=== PATIENT | male | born 1975 | race Caucasian/White ===

== ENCOUNTER 2016-09-10 19:31 | Observation (INO) | payer OTHER ==
[~2016-09-10] VITALS: Ht 180.3 cm; Wt 90.7 kg
--- NOTE | 2016-09-10 20:51 | ED ORDER SUMMARY ---
..... Patient: JUAN C BOYKIN OrderSheet [facility] VisitID: [id number] [place] [address] 41y, M Registration Date/Time: 09/10/2016 ORDER SHEET Weight: 90.7 kg (stated) Allergies: Penicillin GENERAL ORDERS: CT Head wo Cont Urgent (20:03 09/10/2016 HBivens A.R.N.P.) (Ack 20:06 AMcQuoid ER Tech1) (20:15 AMcQuoid ER Tech1) Senior Manufacturing Supervisor (Continuous) (20:03 09/10/2016 HBivens A.R.N.P.) (20:04 HSoule) CBC w Diff Urgent (20:03 09/10/2016 HBivens A.R.N.P.) (Ack 20:06 AMcQuoid ER Tech1) (20:13 AMcQuoid ER Tech1) CMP Urgent (20:03 09/10/2016 HBivens A.R.N.P.) (Ack 20:06 AMcQuoid ER Tech1) (20:13 AMcQuoid ER Tech1) CPK Urgent (20:03 09/10/2016 HBivens A.R.N.P.) (Ack 20:06 AMcQuoid ER Tech1) (20:13 AMcQuoid ER Tech1) Troponin-I Urgent (20:03 09/10/2016 HBivens A.R.N.P.) (Ack 20:06 AMcQuoid ER Tech1) (20:13 AMcQuoid ER Tech1) EKG - ER Stat (20:03 09/10/2016 HBivens A.R.N.P.) (20:04 HSoule) Vitals - Orthostatic (20:03 09/10/2016 HBivens A.R.N.P.) (20:04 HSoule) CPK Urgent (20:40 09/10/2016 HBivens A.R.N.P.) (Ack 20:41 AMcQuoid ER Tech1) (21:34 AMcQuoid ER Tech1) Troponin-I Urgent (20:40 09/10/2016 HBivens A.R.N.P.) (Ack 20:41 AMcQuoid ER Tech1) (21:34 AMcQuoid ER Tech1) EKG - ER Stat (20:49 09/10/2016 HBivens A.R.N.P.) (21:21 HSoule) MEDICATION ORDERS: IV FLUIDS: IV NS : initial bolus 1000 mL (1000 mL/hr), then none - (NOW) (20:03 09/10/2016 HBivens A.R.N.P.) (Ack 20:04 HSoule) (20:08 HSoule) IV Saline Lock (20:03 09/10/2016 HBivens A.R.N.P.) (Ack 20:04 HSoule) (20:08 HSoule) KCl IV 20 meq/100mL (Run no faster than 10 units/hr, HIGH ALERT MEDICATION, NOW, Run no faster than 10 mEq/hr) (20:40 09/10/2016 HBivens A.R.N.P.) (Ack 20:41 HSoule) (21:17 HSoule) ORDER SHEET NOTES: [Electronically signed by Ina Dunbar A.R.N.P. (22:31 09/10/2016)] [Electronically signed by Aundrea Ko (02:08 09/11/2016)] [Electronically locked/signed by Audnrea Ko (02:08 09/11/2016)]
--- NOTE | 2016-09-10 20:51 | ED NURSING NOTES ---
Clinical Report - Nurses [facility] [address] [place] [address] 09/10/2016 19:32 Patient: JUAN C BOYKIN TRIAGE Triage time 19:35 Sep 10 2016. Acuity: LEVEL 3. Chief Complaint: (Weakness/Sycopal episode). SEPSIS SCREEN: Sepsis Screen: negative. Negative (no infection suspected/documented). GILA COMA SCORE: [place] Coma Scale: 15- eyes open spontaneously (4); best verbal response- oriented x 4 (5); best motor response- obeys commands (6). --19:45 Aundrea Ko 19:35 09/10/16. BP: 119/70. HR: 73. RR: 20. O2 saturation: 100%. Temp: 97.5 F (oral). Pain level now: 0/10. --19:45 Aundrea Ko. Weight: 90.7 kg stated. Height/Length: 70 inches Per Patient. BMI: 28.7. --19:38 Aundrea Ko. Medications ALPRAZolam Oral. --19:36 Aundrea Ko AmLODIPine Besylate Oral. --19:37 Aundrea Ko Hydrochlorothiazide Oral. --21:27 Aundrea Ko. Allergies Penicillin. --19:37 Aundrea Ko. Medication/allergy information source: the patient. --19:45 Aundrea Ko. History Arrived by private vehicle. Historian: patient. Unaccompanied. Primary physician (Ayleen). This started just prior to arrival. ( Patient had just got off work and got home when he felt dizzy and lowered himself to the floor. He then got back up to get water and felt like he would pass out again, according to his room mate who was there, he hit the floor and hit the side of his head. He remained laying down and his roommate called EMS. EMS reports he was alert and oriented when they arrived.). Treatment INSOLE PRESSER: See EMS report. Pre-hospital 12-lead EKG. BP: 120 / 70. HR: 70. ( 2x syncopal episode, no post-ictal type behavior. Glucose 178). PAST MEDICAL HX: Immunizations: up-to-date. SOCIAL HX: Smoker- current status unknown (Chews- 3-5 dips per day). History of drug use: marijuana. No alcohol use. No infectious disease exposure. ABUSE ASSESSMENT: No report of abuse. SELF HARM ASSESSMENT: A self harm assessment was performed. The patient answered "no" to the question "Have you recently felt down, depressed, or hopeless?", "Have you noticed less interest or pleasure in doing things?", "Do you have thoughts of harming or killing yourself?", "Are you here because you tried to hurt yourself?", "Have you ever tried to hurt yourself before today?", "Have you recently had thoughts about harming or killing others?" and "Do you have any dangerous items in your possession?". NUTRITIONAL RISK ASSESSMENT: The nutritional risk assessment revealed no deficiencies. FUNCTIONAL ASSESSMENT: Functional assessment: no impairments noted. LEARNING NEEDS ASSESSMENT: The learning needs assessment revealed no barriers. FALL RISK ASSESSMENT: Fall risk assessment completed. Risk factors identified include postural hypotension, dizziness and patient history of fainting. Fall interventions initiated. Patient placed on stretcher. Side rails up x2. Brakes on Bed in low position. Call light in reach of patient. Instructed not to get up without assistance. SKIN INTEGRITY ASSESSMENT: Skin integrity risk assessment completed. No skin integrity risk identified. --19:45 Aundrea Ko PAST MEDICAL HX: ( Family history of heart attack before age 50). --19:47 Aundrea Ko. PROBLEMS: Hypertension. --19:38 Aundrea Ko. ADDITIONAL SURGERIES: Hernia Repair. Wrist fracture repair . --19:38 Aundrea Ko. Interventions ID band on patient. To treatment room. --19:45 Aundrea Ko. 19:36 09/10/2016 Site #1 started via IV in the left antecubital space with an 18g angiocath, with aseptic technique; one attempt. Saline lock flushed with 10 mL saline. --19:36 Aundrea Ko. PHYSICAL ASSESSMENT 19:45 09/10/16. To room via stretcher. Patient gowned. GENERAL / NEURO / PSYCH: Alert. Oriented X 4. Appears in no acute distress. HEENT: No facial asymmetry noted. Mucous membranes are pink. RESPIRATORY: Respirations not labored. CVS: Normal sinus rhythm noted. Pulses within normal limits. GI / : Abdomen soft and nontender. SKIN: Skin is warm and dry. --19:45 Aundrea Ko. NURSING PROGRESS NOTES ( at bedside, reassurance given, plan of care discussed with patient and family.). --19:49 Aundrea Ko EKG time: (19:41 Sep 10 2016). EKG was performed by a nurse and shown to the ED physician. --19:51 Aundrea Ko 19:43 09/10/2016 Started bag #1 1000 mL IV Fluids IV NS (Saline); at 1000 mL/hr over 1 hour(s) via site #1. Allergies verified and confirmed 5 rights. IV patency established. IV site checked: no pain, redness, or swelling. IV flushed thoroughly pre- and post-medication administration (Started en route by EMS). --20:08 Aundrea Ko 19:46 09/10/16. satellite project site monitor, pulse oximeter and NIBP monitor placed on patient; monitor alarms on. Patient gowned. Reassurance given to the patient and patient's family. Two patient identifiers checked. Call light placed in reach. Side rails up x 1. Bed placed in lowest position. Brakes of bed on. Patient ready for evaluation- chart flagged and ED physician notified. --19:46 Aundrea Ko 20:08. Patient transported to CT by stretcher with tech. --20:08 McQuoid, Gladis, ER Tech1 20:15. Patient returned from CT by stretcher with tech. --20:16 McQuoid, Gladis, ER Tech1 20:30 09/10/16. BP: 120/71. HR: 73. RR: 20. O2 saturation: 99% on room air. --20:31 Aundrea Ko Critical value relayed to ED by jorge alberto. Critical value received by aundrea. K: 2.2. Critical value read back. ED physician notifed of critical value. --20:33 Aundrea Ko 21:02 09/10/2016 Started 20 meq of KCL (Potassium Chloride) IVPB in bag #1 100 mL; at 50 mL/hr over 1 hour(s) via site #1 via IV pump. Allergies verified and confirmed 5 rights. IV patency established. IV site checked: no pain, redness, or swelling. IV flushed thoroughly pre- and post-medication administration. --21:17 Aundrea Ko 21:02 09/10/2016 IV Fluids IV NS Discontinued: bag #1 completed. Total amount infused: 1000 mL. IV patency established. IV site checked: no pain, redness, or swelling. IV flushed thoroughly. --21:17 Aundrea Ko 21:23. EKG was performed by a tech. --21:25 Gladis Hernandez ER Tech1 ( Patient reports he is on a diuretic for his hypertension that was adjusted to twice a day. Provider notified. Medication added to chart.). --21:28 Aundrea Ko 21:39 09/10/16. BP: 135/82. HR: 73. O2 saturation: 97% on room air. --21:40 Aundrea Ko 22:14 09/10/2016 Site #[address] upon admission; patent, no pain and no signs of infection or infiltration; flushes easily. --22:14 Aundrea Ko 22:14 09/10/2016 KCL IVPB Continued: upon admission at the rate of 100 mL/hr. 50 mL remaining bag #1. IV patency established. IV site checked: no pain, redness, or swelling. IV flushed thoroughly. --22:14 Aundrea Ko. DISPOSITION / DISCHARGE Report was given to a nurse via a phone call. All questions were answered. Report was acknowledged and care was transferred. (lev). Bed obtained and ready. --22:10 Aundrea Ko Patient's personal items include: shirt, pants, wallet and cell phone; items were given to the patient and transported with the patient. --22:14 Aundrea Ko Disposition: observation in Acute Care. Transported via stretcher by tech with IV. --22:15 Audnrea Ko 22:15 09/10/16. --02:07 Aundrea Ko 22:10 09/10/16. BP: 132/80. HR: 70. RR: 20. O2 saturation: 100% on room air. Temp: 98.9 F (oral). Pain level now: 0/10. --02:07 Aundrea Ko. Locked/Released at 09/11/2016 2:08 by Aundrea Ko,
--- NOTE | 2016-09-10 20:51 | ED CLINICAL REPORT ---
Clinical Report - Physicians/Mid Levels [facility] [address] [place] [address] 09/10/2016 19:32 Patient: JUAN C BOYKIN Time Seen: 19:56; initial patient contact, initial documentation, patient care assumed. Arrived- By ambulance. Historian- patient. HISTORY OF PRESENT ILLNESS The patient has recovered. Chief Complaint: SINGLE SYNCOPAL EPISODE. This occurred just prior to arrival. Event was witnessed. (roommate). At time of event, he was standing and had just stood up. This did not occur when the patient was recumbent. The patient had preceding symptoms of light-headedness. No preceding symptoms of nausea, dim vision, chest pain, warmth or abdominal pain. The patient lost consciousness and collapsed. No seizure activity, incontinence or apnea noted. Did not lose pulse. Had a single episode. The episode was brief. The patient currently has weakness. No nausea currently. No headache currently. (came home from work, was walking around house, and felt weak and lightheaded, sat down on floor, got better, went to get up and passed out). Similar symptoms previously: None. Recent medical care: Not recently seen/assessed. REVIEW OF SYSTEMS No headache, chest pain, palpitations, abdominal pain or vomiting. No diarrhea, numbness, fever or difficulty breathing. He has had dizziness. He has had new onset of generalized weakness. All systems otherwise negative, except as recorded above. PAST HISTORY See nurses notes. ( PROBLEMS: Hypertension. --19:38 Aundrea Ko. ADDITIONAL SURGERIES: Hernia Repair. Wrist fracture repair . --19:38 Aundrea Ko.). SOCIAL HISTORY Smoker- current status unknown (chews). Occasional alcohol use. History of occasional drug use: marijuana. No recent travel. Is a local resident. FAMILY HISTORY Negative. ADDITIONAL NOTES The nursing notes have been reviewed with agreement regarding the chief complaint, HPI, ROS, PMH and patient medications and allergies. PHYSICAL EXAM Vital Signs: 09/10/2016 19:35 BP: 119/70. HR: 73. RR: 20. O2 saturation: 100%. Temp: 97.5 F. Pain level now: 0/10. Have been reviewed as normal and appear to be correct. Appearance: Alert. No acute distress. Eyes: Pupils equal, round and reactive to light. No nystagmus. Extraocular movements normal. ENT: Normal ENT inspection. TM's normal. Moist mucous membranes. Pharynx normal. Neck: Normal inspection. Neck supple. CVS: Normal heart rate and rhythm. Heart sounds normal. Pulses normal. Respiratory: No respiratory distress. Breath sounds normal. Abdomen: Soft and nontender. No organomegaly. Back: Normal inspection. Skin: Skin warm and dry. Normal skin color. No rash. Normal skin turgor. Extremities: Extremities exhibit normal ROM. No lower extremity edema. Neuro: Alert. Oriented X 3. Mood/affect normal. Speech normal. Cranial nerves normal (as tested). No cerebellar findings. No motor deficit. No sensory deficit. LABS, X-RAYS, AND EKG EKG: EKG time: (1940). No acute process. No acute ischemia. Normal EKG. Rate: 74. Normal EKG. interpreted by dr coppola and reviewed by me. The EKG appears to be a good tracing. EKG #2: Normal. EKG time: (2122). No acute process. No acute ischemia. Normal EKG. Rate: 70. The study has been interpreted contemporaneously by me (and dr avery). The EKG appears to be a good tracing. Interpretation time: 2124. CT Head: Normal study. No acute disease. (IMPRESSION: 1. Negative head CT. 2. Findings discussed with BLAZE Torres at [address] scans at this facility use dose modulation, iterative reconstruction, and/or weight-based dosing when appropriate to reduce radiation dose to as low as reasonably achievable. Electronically Final signed by:Kaiden Mckenzie MD 09/10/2016 8:52:40 PM). The study was interpreted by the radiologist and discussed with the radiologist. Interpretation time: 2054. Laboratory Tests: CBC w Diff: (NANCY: 09/10/2016 19:45) ( MsgRcvd 09/10/2016 20:12) Final results Test Result Flag Units (Reference) WHITE BLOOD COUNT 6.7 K/uL (4.5-11.5) RED BLOOD COUNT 4.76 M/uL (4.50-5.90) HEMOGLOBIN 14.7 gm/dL (13.5-17.5) HEMATOCRIT 42.6 % (41.0-53.0) MEAN CELL VOLUME 90 fL (80-100) MEAN CORPUSCULAR HGB 31 pg (26-34) MEAN CORPUSCULAR HGB CONC 34 g/dL (31-37) RED CELL DISTRIBUTION WIDTH 12.6 % (11.6-14.8) PLATELET COUNT 230 K/uL (150-400) NEUTROPHIL % 53.7 % (50-75) LYMPH % 35.8 % (25-40) MONO % 6.4 % (3-14) EOSINOPHIL % 3.6 % (0-4) BASOPHIL % 0.5 % (0-2) CPK: (NANCY: 09/10/2016 21:10) ( [facility] 09/10/2016 21:51) Final results Test Result Flag Units (Reference) CPK 628 H U/L (24-260) CK-MB 4.3 H ng/mL (0.5-3.2) %CKMB 0.7 % (0.0-4.0) TROPONIN I <0.05 ng/mL (0.00-1.5) TROPONIN REFERENCE RANGE:<0.1 NEGATIVE0.1-1.5 INDETERMINANT>1.5 POSITIVE CMP: (NANCY: 09/10/2016 19:45) ( [facility] 09/10/2016 20:36) Final results Test Result Flag Units (Reference) GLUCOSE 174 H mg/dL (70-110) BUN 21 H mg/dL (7-18) CREATININE 1.3 mg/dL (0.6-1.3) Estimated GFR >60 mL/min Estimated GFR- >60 mL/min Note: Persistent reduction over 3 months in eGFR<60 mL/min/1.73 m2 defines CKD. Patients with eGFR values>=60 mL/min/1.73 m2 may also have CKD if evidence ofpersistent proteinuria. Additional information may be foundat www.kidney.org. SODIUM 142 mmol/L (136-145) POTASSIUM 2.2 *L mmol/L (3.5-5.1) CRITICAL RESULTS CALLEDCalled to MADDY REEVES IN ED 09/10/162032Were 2 patient identifiers used? YWas the result read back? YVERIFIED ON ALTERNATE ANALYZER CHLORIDE 102 mmol/L (98-107) CARBON DIOXIDE 28 mmol/L (21-32) CALCIUM 9.0 mg/dL (8.5-10.1) TOTAL PROTEIN 6.8 g/dL (6.4-8.2) ALBUMIN 4.3 g/dL (3.3-5.0) BILIRUBIN, TOTAL 0.6 mg/dL (0.0-1.0) ALKALINE PHOSPHATASE 46 U/L (46-116) AST (SGOT) 32 U/L (15-37) ALT (SGPT) 44 U/L (12-78) CPK 635 H U/L (24-260) TROPONIN I <0.05 L ng/mL (0.00-1.5) TROPONIN REFERENCE RANGE:<0.1 NEGATIVE0.1-1.5 INDETERMINANT>1.5 POSITIVE MAGNESIUM 1.8 mg/dL (1.8-2.4) CK-MB 4.7 H ng/mL (0.5-3.2) %CKMB 0.7 % (0.0-4.0) . PROGRESS AND PROCEDURES Course of Care: 20:44 09/10/16. lab results discussed and pt informed of need for admit 21:29 09/10/16. nurse reporting now that pt told her he was taking hctz twice daily for his htn 0. Dr Lackey at bedside. 09/10/2016 20:30 BP: 120/71. HR: 73. RR: 20. O2 saturation: 99%. Vital Signs: have been reviewed as normal and appear to be correct. Discussed case with on-call health care provider, (call returned 2044 Dr Lackey). Reviewed test results. Agreed upon treatment plan and decision to admit. Health care provider will see patient in hospital. Patient and family counseled in person regarding the patient's stable condition, test results, diagnosis and need for additional testing and admission. Differential Diagnosis: I considered situational stimulus, cough, sneezing, swallowing, cardiac sinus hypersensitivity, sudden postural change, prolonged standing, hypovolemia, vasodilator drugs, adrenal insufficiency, arrhythmia, heart block, myocardial infarction, idiopathic hypertrophic subaortic stenosis, aortic stenosis, left ventricular dysfunction, seizure, hypoxia, hypoglycemia and basivertebral TIA as a possible cause of syncope in this patient. This is a partial list of diagnoses considered. Above considerations are based on history, physical exam, reassessment, laboratory data, EKG and other information. Differential diagnosis was discussed with patient. Disposition: Admitted to Acute Care. 20:51. Condition: good and stable. CLINICAL IMPRESSION Syncope of unknown cause. Hypokalemia. (Electronically signed by Ina Dunbar A.R.N.P. 09/10/2016 22:31)
--- NOTE | 2016-09-10 20:51 | ED ORDER SUMMARY ---
..... Patient: JUAN C BOYKIN OrderSheet [facility] VisitID: [id number] [place] [address] 41y, M Registration Date/Time: 09/10/2016 ORDER SHEET Weight: 90.7 kg (stated) Allergies: Penicillin GENERAL ORDERS: CT Head wo Cont Urgent (20:03 09/10/2016 HBivens A.R.N.P.) (Ack 20:06 AMcQuoid ER Tech1) (20:15 AMcQuoid ER Tech1) Senior Electronics Design Engineer (Continuous) (20:03 09/10/2016 HBivens A.R.N.P.) (20:04 HSoule) CBC w Diff Urgent (20:03 09/10/2016 HBivens A.R.N.P.) (Ack 20:06 AMcQuoid ER Tech1) (20:13 AMcQuoid ER Tech1) CMP Urgent (20:03 09/10/2016 HBivens A.R.N.P.) (Ack 20:06 AMcQuoid ER Tech1) (20:13 AMcQuoid ER Tech1) CPK Urgent (20:03 09/10/2016 HBivens A.R.N.P.) (Ack 20:06 AMcQuoid ER Tech1) (20:13 AMcQuoid ER Tech1) Troponin-I Urgent (20:03 09/10/2016 HBivens A.R.N.P.) (Ack 20:06 AMcQuoid ER Tech1) (20:13 AMcQuoid ER Tech1) EKG - ER Stat (20:03 09/10/2016 HBivens A.R.N.P.) (20:04 HSoule) Vitals - Orthostatic (20:03 09/10/2016 HBivens A.R.N.P.) (20:04 HSoule) CPK Urgent (20:40 09/10/2016 HBivens A.R.N.P.) (Ack 20:41 AMcQuoid ER Tech1) (21:34 AMcQuoid ER Tech1) Troponin-I Urgent (20:40 09/10/2016 HBivens A.R.N.P.) (Ack 20:41 AMcQuoid ER Tech1) (21:34 AMcQuoid ER Tech1) EKG - ER Stat (20:49 09/10/2016 HBivens A.R.N.P.) (21:21 HSoule) MEDICATION ORDERS: IV FLUIDS: IV NS : initial bolus 1000 mL (1000 mL/hr), then none - (NOW) (20:03 09/10/2016 HBivens A.R.N.P.) (Ack 20:04 HSoule) (20:08 HSoule) IV Saline Lock (20:03 09/10/2016 HBivens A.R.N.P.) (Ack 20:04 HSoule) (20:08 HSoule) KCl IV 20 meq/100mL (Run no faster than 10 units/hr, HIGH ALERT MEDICATION, NOW, Run no faster than 10 mEq/hr) (20:40 09/10/2016 HBivens A.R.N.P.) (Ack 20:41 HSoule) (21:17 HSoule) ORDER SHEET NOTES: [Electronically signed by Ina Dunbar A.R.N.P. (22:31 09/10/2016)] [Electronically signed by Aundrea Ko (02:08 09/11/2016)] [Electronically locked/signed by Aundrea Ko (02:08 09/11/2016)]
--- NOTE | 2016-09-10 20:55 | DIAGNOSTIC IMAGING REPORT ---
PROCEDURE: CT HEAD WITHOUT CONTRAST INDICATION: SYNCOPE TECHNIQUE: Noncontrast axial images with sagittal and coronal reformations. COMPARISON: None. FINDINGS: Brain and ventricles are normal. No evidence of an acute process or hemorrhage. Sinuses and mastoids are normal. IMPRESSION: 1. Negative head CT. 2. Findings discussed with BLAZE Torres at [address] scans at this facility use dose modulation, iterative reconstruction, and/or weight-based dosing when appropriate to reduce radiation dose to as low as reasonably achievable.
[2016-09-10 23:13] VITALS: BP 120/69
--- NOTE | 2016-09-11 01:28 | HISTORY AND PHYSICAL ---
ADMITTED: 09/10/2016 HISTORY OF PRESENT ILLNESS: The patient is a 41-year-old white male who has generally been in good health. He does have a history of longstanding hypertension. He came home from work today and was talking with a neighbor or friend and suddenly felt weak. He apparently eased himself down to the floor and stayed there for a few minutes, though he does not exactly recall clearly doing this. He felt a little better and then tried to sit up to get some water. As he did this, he became suddenly syncopal once more and passed out completely. He hit his head on the floor as he fell the second time. His friend called 911. When EMS arrived, he seemed to be okay and had stable vital signs and was able to be up and moving around and had no focal neurologic problems. He elected to have his family bring him down to the Emergency Department here at [facility]. He has not really had any other recent problems or injuries or difficulties. He does have a history of longstanding hypertension and has been on medication for this for a number of years. Most recently, he has been on amlodipine plus hydrochlorothiazide. He is followed at the [facility] in [place]. He has very infrequent appointments there. For one reason or another, he decided to increase his hydrochlorothiazide to 2 tablets daily a number of weeks ago. He is not taking any extra potassium. He has noticed that he has seemed to be more tired with achy muscles over the last several days, though did not really have any major muscle cramps. He has had no further episodes of syncope prior to this, except one time when he was watching on the video monitor a procedure that was being done to his ear. He suddenly became lightheaded and passed out. MEDICAL/SURGICAL HISTORY: Past medical history is remarkable for hypertension as noted. He also has had problems with posttraumatic stress disorder and nightmares. He has had problems with sleep apnea, but has chosen not to use a CPAP machine. He also has had a remote fracture of his left wrist and a remote problem with hernia development. Past surgical history is remarkable for hernia repair and repair of the right wrist fracture quite a number of years ago. MEDICATIONS: Include: 1. Prazosin ------- taken before bedtime. 2. Amlodipine, milligram dose unknown. 3. Hydrochlorothiazide, dose unknown, but increased recently to twice daily on the patient's own volition. ALLERGIES: INCLUDE: 1. PENICILLIN. 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 He does not smoke, but does use some chewing tobacco. He occasionally smokes marijuana. He does not drink alcohol. FAMILY HISTORY: Remarkable for the patient's father who suddenly at age 43 of a massive MD. The patient's mother has problems with hypertension and diabetes. The patient's mother also mentions that there is a family history of kidney problems , she thinks some type of glomerulonephritis that tends to run on her side of the family. The patient himself has a child who at age 1 year 2 months of a heart problem. The expanding machine operator who was attending his son suggested that the patient have an echocardiogram. He has never had this done. REVIEW OF SYSTEMS: HEENT has been okay. Respiratory has been okay. He does have sleep apnea, but has not been particularly symptomatic from this. Cardiovascular is okay with no problems with rapid heartbeat or retrosternal chest pain, other than the syncope today. Gastrointestinal is okay with no nausea, vomiting, diarrhea, or heartburn. Genitourinary is okay with no problems passing urine. He has had no blood in his urine. Neurological is as above. Psychiatric is remarkable for the posttraumatic stress disorder with nightmares controlled with the prazosin. Skin is okay. PHYSICAL EXAMINATION: GENERAL: Reveals the patient to be a healthy, muscular white male in no acute distress. VITAL SIGNS: Temperature is 98.8. Pulse is 70 and regular. Respiratory rate is 18. Oxygen saturation is 96% on room air. Blood pressure is in the 120/70 range. HEENT: Head is normal. Ear canals and tympanic membranes are normal. Eyes show pupils equal, round, and reactive to light with normal extraocular movements. Fundi show flat discs and normal vessels. Nose and throat are clear. NECK: Supple. Carotid pulses are normal. No bruits are heard. CHEST: Clear to auscultation and percussion. HEART: Reveals a normal S1 and S2 with no distinct murmur. Axillary areas are normal. ABDOMEN: Nontender with no organomegaly or mass. Bowel tones are normal. GENITALIA/RECTAL: Exams are not done. EXTREMITIES: Show normal range of motion and normal pulses. No edema. NEUROLOGIC: Reveals the patient to be alert and oriented x3. Cranial nerves are normal. Motor and sensory exams are normal. There is no drift. Kkjsah-jk-zlst testing is normal. SKIN: Normal. LAB/IMAGING: Show white blood cell count to be 6700, hemoglobin is 16.7, hematocrit is 42.6. Sodium is 142, potassium 2.2, chloride 100, CO2 28, glucose 174, creatinine 1.3, BUN 21, magnesium 1.8. SGOT is 32, SGPT is 46, alkaline phosphatase is 46. CPK is elevated at 635. CPK-MB is 4.7 and CPK-MB percent is 0.7%. Troponin I is less than 0.01. This was repeated about an hour later and it was the same. CPK was repeated at about an hour later and had not really changed significantly. Brain CT scan is normal with no abnormalities noted. EKG shows a normal sinus rhythm with rate at [address]-segment elevations or depressions. IMPRESSION: 1. The patient is presenting with syncope, which is likely related to hypokalemia and may have been related to hypotension as well. The patient does have profound hypokalemia, which is most likely related to the hydrochlorothiazide taken at a higher dose than prescribed and without followup with blood testing. 2. Other longstanding problems include hypertension. 3. Sleep apnea. 4. Posttraumatic stress disorder. 5. Family history of early myocardial infarction with the patient's father having a myocardial infarction at age 43. 6. Elevated CPK, which is probably skeletal muscle, though exactly why this is elevated is not entirely clear. The patient does not seem to have any major trauma and does not seem to have had enough of an impact on his chest to cause any bruising or muscle changes. PLAN: The patient is admitted to observation telemetry status. Potassium will be replaced. He did have 20 mEq IV in the emergency department and will receive 20 mEq IV potassium plus normal saline IV for rehydration and oral potassium 20 mEq now and repeated in the morning. Blood tests will be repeated in the morning including CPK levels and EKG will be repeated in the morning. He would be a candidate to consider for heart exercise stress test, considering his father's myocardial infarction at a relatively early age. Also lipid profile will be checked in the morning.
--- NOTE | 2016-09-11 02:08 | ED MED RECONCILIATION SUMMARY ---
Patient: JUAN C BOYIKN Medication Reconciliation Report [facility] VisitID: [id number] [address] [place] [address] 41y, M Registration Date/Time: 09/10/2016 Weight: 90.7 kg Height/Length: 70 in. BMI: 28.7 ALLERGIES: Penicillin The patient's Home Medications are listed below: THE FOLLOWING MEDICATIONS NEED TO BE RECONCILED: ALPRAZolam Oral AmLODIPine Besylate Oral Hydrochlorothiazide Oral The source(s) of the original Home Medication information: patient The following Medications were given to the patient in the Emergency Department: IV NS IV Fluids bolus 0, then 1000 mL/hr, administered: 09/10/2016 7:43:00 PM KCL [IVPB] IVPB bolus 0, then 20 meq 50 mL/hr, administered: 09/10/2016 9:02:00 PM The following Medications were prescribed to the patient: None.
--- NOTE | 2016-09-11 02:08 | ED MED RECONCILIATION SUMMARY ---
Patient: JUAN C BOYKIN Medication Reconciliation Report [facility] VisitID: [id number] [address] [place] [address] 41y, M Registration Date/Time: 09/10/2016 Weight: 90.7 kg Height/Length: 70 in. BMI: 28.7 ALLERGIES: Penicillin The patient's Home Medications are listed below: THE FOLLOWING MEDICATIONS NEED TO BE RECONCILED: ALPRAZolam Oral AmLODIPine Besylate Oral Hydrochlorothiazide Oral The source(s) of the original Home Medication information: patient The following Medications were given to the patient in the Emergency Department: IV NS IV Fluids bolus 0, then 1000 mL/hr, administered: 09/10/2016 7:43:00 PM KCL [IVPB] IVPB bolus 0, then 20 meq 50 mL/hr, administered: 09/10/2016 9:02:00 PM The following Medications were prescribed to the patient: None.
--- NOTE | 2016-09-11 02:08 | ED DISCHARGE INSTRUCTIONS ---
Patient: JUAN C BOYKIN General Instructions [facility] VisitID: [id number] [address] [place] [address] 41y, M Registration Date/Time: 09/10/2016 Syncope of unknown cause. Hypokalemia. (Electronically signed by Ina Dunbar A.R.N.P. 09/10/2016 22:31)
--- NOTE | 2016-09-11 02:08 | ED MAR SUMMARY ---
..... Medication Administration Record [facility] [address] [place] [address] Patient: JUAN C BOYKIN Visit ID: [id number] 41y, M Weight: 90.7 kg Height/Length: 70 in BMI: 28.7 ALLERGIES: Penicillin Start 19:43 09/10/2016 Aundrea Ko,, Stop 21:02 09/10/2016 Aundrea Ko, Medication Administered: IV NS (SALINE), Dose: IV Fluids over 1 hour(s), Rate: 1000 mL/hr, Dispensed: 1000 mL bag, Site: #1 left AC. Medication Ordered: IV NS : initial bolus 1000 mL (1000 mL/hr), then none - (NOW). Start 21:02 09/10/2016 Aundrea Ko,, Continued Upon Admission 22:14 09/10/2016 Aundrea Ko, Medication Administered: KCL [IVPB] (POTASSIUM CHLORIDE), Dose: 20 meq IVPB over 1 hour(s), Rate: 50 mL/hr, Dispensed: 100 mL bag, Site: #1 left AC. Medication Ordered: KCl IV 20 meq/100mL (Run no faster than 10 units/hr, HIGH ALERT MEDICATION, NOW, Run no faster than 10 mEq/hr).
--- NOTE | 2016-09-11 02:08 | ED DISCHARGE INSTRUCTIONS ---
Patient: JUAN C BOYKIN General Instructions [facility] VisitID: [id number] [address] [place] [address] 41y, M Registration Date/Time: 09/10/2016 Syncope of unknown cause. Hypokalemia. (Electronically signed by Ina Dunbar A.R.N.P. 09/10/2016 22:31)
--- NOTE | 2016-09-11 02:08 | ED MAR SUMMARY ---
..... Medication Administration Record [facility] [address] [place] [address] Patient: JUAN C BOYKIN Visit ID: [id number] 41y, M Weight: 90.7 kg Height/Length: 70 in BMI: 28.7 ALLERGIES: Penicillin Start 19:43 09/10/2016 Aundrea Ko,, Stop 21:02 09/10/2016 Aundrea Ko, Medication Administered: IV NS (SALINE), Dose: IV Fluids over 1 hour(s), Rate: 1000 mL/hr, Dispensed: 1000 mL bag, Site: #1 left AC. Medication Ordered: IV NS : initial bolus 1000 mL (1000 mL/hr), then none - (NOW). Start 21:02 09/10/2016 Aundrea Ko,, Continued Upon Admission 22:14 09/10/2016 Aundrea Ko, Medication Administered: KCL [IVPB] (POTASSIUM CHLORIDE), Dose: 20 meq IVPB over 1 hour(s), Rate: 50 mL/hr, Dispensed: 100 mL bag, Site: #1 left AC. Medication Ordered: KCl IV 20 meq/100mL (Run no faster than 10 units/hr, HIGH ALERT MEDICATION, NOW, Run no faster than 10 mEq/hr).
[2016-09-11 03:06] VITALS: BP 106/65
[2016-09-11 06:32] VITALS: BP 111/79
--- NOTE | 2016-09-11 06:45 | NUR ---
PT ARRIVED ON UNIT FROM ED AT 2310. ORIENTED TO ROOM. VSS ON ROOM AIR. K+ LEVEL WAS 2.2 IN ED. TWO K+ RIDERS GIVEN AND FLUIDS WITH K+ INFUSING. ALSO ORAL K+ PILLS GIVEN. WAITING FOR MORNING LABS TO COME IN TO VERIFY NEW K+ LEVEL. IV RESITED TO RFA SINCE LAC BECAME OCCLUDED. PT SLEPT WELL DURING THE NIGHT.
--- NOTE | 2016-09-11 08:23 | Progress Note ---
Subjective General Note Date: September 11, 2016 Admission Date: September 10, 2016 Hospital Day: 2 PCP: None Status: Observation Advanced Directive: Full Code Room: 209-A Brief History: The patient is a 41-year-old white male with a significant past medical history of hypertension, posttraumatic stress disorder, sleep apnea, who presented to [facility] emergency department on the day of admission secondary to complaints of syncope. [facility] ER evaluation showed the patient to have severe hypokalemia ( potassium 2.2) and syncope. Secondary to the above, the patient was admitted by Bradley Lackey M.D. for further evaluation and treatment. For other history present illness, past medical history, family history, social history, review of systems, and admission physical examination please see the patient's history and physical examination and ER visit note in the patient's medical record. Subjective: The patient States he is doing well. Ready for discharge. No lightheadedness. Orthostatic blood pressure checks normal. Patient requests: None Medications and Allergies Medications Current Medications Sig/Risa Start time Last Medication Dose Route Stop Time Status Admin Potassium Chloride 40 MEQ ONCE 09/11 0830 UNVr PO Potassium Chloride/ 200 ML NOW STA 09/11 0816 UNV Water IV 09/11 1215 Sodium Chloride/ 1,000 ML ASDIRECTED 09/11 0030 AC 09/11 Electrolytes IV 0053 Lorazepam 0.5 MG QHS PRN 09/11 0015 AC PO Morphine Sulfate 2 MG Q1H PRN 09/10 2200 AC IV Morphine Sulfate 4 MG Q1H PRN 09/10 2200 AC IV Ondansetron HCl 4 MG Q8H PRN 09/10 2145 AC IV Allergies Coded Allergies: Penicillins (Severe, 09/11/16) Physical Exam Vital Signs / I&Os Vital Signs Date Time Temp Pulse Resp B/P Pulse O2 O2 Flow FiO2 Ox Delivery Rate 09/11 0632 98.4 67 19 111/79 99 Room Air 09/11 0306 98.6 70 16 106/65 98 Room Air 0.0 09/10 2330 Room Air 09/10 2313 120/69 09/10 2307 98.8 70 18 96 Room Air 0.0 09/10 2257 Room Air 0.0 I&O 09/11 0000 09/10 1600 09/10 0800 Intake Total Output Total Balance General Appearance Alert, Oriented X3, Cooperative, No acute distress Lungs Clear to auscultation, Normal air movement Cardiovascular Regular rate and rhythm, Normal S1 and S2 Abdomen Normal bowel sounds, Soft, No tenderness Extremities No cyanosis, No clubbing, No edema Neurological Cranial nerves intact, No lateralizing signs Psych/Mental Status Mental status normal, Mood normal LAB Results Laboratory Tests 09/11 09/11 09/10 09/10 0550 0550 2110 1945 Chemistry Plasma Sodium (136 - 145 mmol/L) 143 142 Plasma Potassium (3.5 - 5.1 mmol/L) 2.8 2.2 Plasma Chloride (98 - 107 mmol/L) 106 102 CO2 (Enzymatic) (21 - 32 mmol/L) 28 28 BUN (7 - 18 mg/dL) 18 21 Creatinine (0.6 - 1.3 mg/dL) 1.0 1.3 Est GFR ( Amer) (mL/min) >60 >60 Est GFR (Non-Af Amer) (mL/min) >60 >60 Glucose (70 - 110 mg/dL) 96 174 Plasma Calcium (8.5 - 10.1 mg/dL) 8.5 9.0 Plasma Magnesium (1.8 - 2.4 mg/dL) 2.0 1.8 Total Bilirubin (0.0 - 1.0 mg/dL) 0.6 AST (15 - 37 U/L) 32 ALT (12 - 78 U/L) 44 Alkaline Phosphatase (46 - 116 U/L) 46 Creatine Kinase (24 - 260 U/L) 480 628 635 CK-MB (CK-2) (0.5 - 3.2 ng/mL) 3.1 4.3 4.7 CK/CKMB % Calc (0.0 - 4.0 %) 0.6 0.7 0.7 Troponin (0.00 - 1.5 ng/mL) <0.05 <0.05 <0.05 Total Protein (6.4 - 8.2 g/dL) 6.8 Albumin (3.3 - 5.0 g/dL) 4.3 Triglycerides (30 - 200 mg/dL) 51 Cholesterol (140 - 200 mg/dL) 155 LDL Cholesterol, Calc (mg/dL) 101 HDL Cholesterol (32 - 96 mg/dL) 44 LDL/HDL Ratio 2.3 Cholesterol/HDL Ratio 3.5 Coronary Risk Interp (0.4 - 1.0) 0.7 Hematology WBC (4.5 - 11.5 K/uL) 7.9 6.7 RBC (4.50 - 5.90 M/uL) 4.66 4.76 Hgb (13.5 - 17.5 gm/dL) 14.3 14.7 Hct (41.0 - 53.0 %) 42.0 42.6 MCV (80 - 100 fL) 90 90 MCH (26 - 34 pg) 31 31 RDW (11.6 - 14.8 %) 12.9 12.6 Neut % (Auto) (50 - 75 %) 58.2 53.7 Lymph % (Auto) (25 - 40 %) 31.8 35.8 [place] % (Auto) (3 - 14 %) 5.5 6.4 Eos % (Auto) (0 - 4 %) 4.0 3.6 Baso % (Auto) (0 - 2 %) 0.5 0.5 Plt Count, EDTA (150 - 400 K/uL) 256 230 PUBS MCHC (31 - 37 g/dL) 34 34 Assessment and Plan Problem List 1. Syncope Plan -Resolved -Orthostatic blood pressure check normal -No arrhythmias noted -[place] secondary to dehydration/hypokalemia -Outpatient follow-up PCP -Dr. Johnson 2. Hypokalemia Plan -much improved -Potassium 2.8 this a.m. -Patient received KCl 80 mEq prior to discharge. -Potassium supplementation on discharge -Follow up with Dr. Johnson this week. 3. Hypertension Status Chronic Onset Date Unknown Plan -well-controlled -DC chlorthalidone -Follow up with Dr. Johnson this week 4. Tobacco abuse Status Chronic Onset Date Unknown Plan -recommend smoking cessation -Smoking cessation education Current status: Good, improved Anticipated discharge date: Today Anticipated discharge placement: Home Patient care time: Time spent in chart review, patient interview, physical exam, CPOE, and care documentation: Greater than 30 minutes Visit to patient today: 1 Complexity of care: Moderate For other recommendations regarding discharge diet, activity, followup, and discharge medications please see the patient's discharge instructions. Greater than 30 min. was spent in the patient's discharge preparation including discharge interview and physical examination, progress note, discharge instructions, and discharge summary E&M Codes Discharge: Observation - All/[id number]
[2016-09-11] MEDS ORDERED: ACYCLOVIR200 MG PO (09:06)
[2016-09-11] MEDS ORDERED: PRAZOSIN HCL2 MG PO (09:06)
[2016-09-11] MEDS ORDERED: ZOLOFT50 MG PO (09:07)
[2016-09-11] MEDS ORDERED: AMLODIPINE BESYL5 MG PO (09:07)
[2016-09-11] MEDS ORDERED: CHLORTHALIDONE50 MG PO (09:08)
[2016-09-11] MEDS ORDERED: HYDROXYZINE HCL25 MG PO (09:09)
[2016-09-11 09:58] VITALS: BP 142/99
[2016-09-11 09:59] VITALS: BP 134/96; BP 154/103
--- NOTE | 2016-09-11 10:43 | NUR ---
PATIENT K LEVEL 2.8 THIS AM. NOTIFIED AND NEW ORDERS FOR MORE IV POTASSIUM. ORTHOSTATICS CHECKED AND WERE NEGATIVE. PATIENT DENIES DIZZINESS WITH STANDING. SB THIS AM ON TELEMETRY AND CURRENTLY NSR. DENIES PAIN.
[2016-09-11] MEDS ORDERED: KLOR-CON M2020 MEQ PO (12:42)
--- NOTE | 2016-09-11 12:44 | Provider's Discharge Care Plan ---
Problem, Goal, Plan Problem List 1. Syncope Goals: Improve disease control, Prevent disease progress Instructions: Follow up as directed, Take meds as directed 2. Hypokalemia Goals: Improve disease control, Prevent disease progress Instructions: Follow up as directed, Take meds as directed, Have your potassium checked with Dr. Johnson this week. 3. Hypertension Goals: Improve disease control, Prevent disease progress Instructions: Follow up as directed, Take meds as directed, Avoid processed foods, Low salt diet 4. Tobacco abuse Goals: Improve disease control, Prevent disease progress Instructions: Follow up as directed, Take meds as directed, Avoid tobacco products.
== END 2016-09-11 13:25 | disposition home or self-care (01) ==
LOC: ED SRH 19:31 → TRANS SRH 20:54 → ACUTE2 SRH 20:54
PROVIDERS: ADMIT Family Medicine
DX: T50.2X1A Poisoning by carbonic-anhydrase inhibitors, benzothiadiazides and other diuretics, accidental (unintentional), initial encounter (principal); E87.6 Hypokalemia; E86.0 Dehydration; R55 Syncope and collapse; R74.8 Abnormal levels of other serum enzymes; I10 Essential (primary) hypertension; F43.12 Post-traumatic stress disorder, chronic; G47.30 Sleep apnea, unspecified
CPT/HCPCS: 29230; 29244; 90047; 90074; 90100; 90616; 90617; 92610; 92690; 92720; 95059

== ENCOUNTER 2016-10-04 12:51 | Outpatient (CLI) | payer OTHER ==
[~2016-10-04 12:51] MED LIST: ACYCLOVIR200 MG PO; AMLODIPINE BESYL5 MG PO; CHLORTHALIDONE50 MG PO; HYDROXYZINE HCL25 MG PO; KLOR-CON M2020 MEQ PO; PRAZOSIN HCL2 MG PO; ZOLOFT50 MG PO
--- NOTE | 2016-10-06 16:09 | DIAGNOSTIC IMAGING REPORT ---
REFERRING PHYSICIAN/PROVIDER: Dr. Johnson CONSULTING ENGINE EMISSION TECHNICIAN: Devan Morales MD PROCEDURE: 2D echo, M-mode and complete color and flow Doppler interrogation TECHNICAL QUALITY: Good INDICATION: ESSENTIAL HYPERTENSION INTERPRETATIONS: CHAMBERS: LEFT ATRIUM: Normal left atrial size. LEFT VENTRICLE: Concentric left ventricular hypertrophy. Normal systolic function, EF 63%. No wall motion abnormalities. Normal diastolic function. RIGHT ATRIUM: Normal right atrial size. RIGHT VENTRICLE: Normal right ventricular size and systolic function. VALVES: All valves nonrheumatic unless otherwise indicated. AORTIC VALVE: Trileaflet aortic valve. No aortic stenosis. No aortic regurgitation. MITRAL VALVE: Normal mitral valve structure. Mild mitral regurgitation. No mitral stenosis. TRICUSPID VALVE: Trace tricuspid regurgitation. Unable to estimate pulmonary artery systolic pressure due to inadequate tricuspid regurgitation jet. PULMONIC VALVE: Trace pulmonic regurgitation. MISCELLANEOUS: No pericardial effusion. HEMODYNAMICS: Normal size IVC with >50% inspiratory collapse. CVP is 3 mmHg. IMPRESSION: 1. Concentric left ventricular hypertrophy with normal systolic function, EF 63%. No wall motion abnormalities. 2. Normal diastolic function. 3. Mild mitral regurgitation. 4. Normal right ventricular size and systolic function. 5. Unable to estimate pulmonary artery systolic pressure due to inadequate tricuspid regurgitation jet. 6. No pericardial effusion.
== END 2016-10-04 23:00 ==
LOC: US SRH 12:51
DX: I10 Essential (primary) hypertension (principal); I34.0 Nonrheumatic mitral (valve) insufficiency